=== PATIENT | female | born 1970 | race Caucasian/White ===

== ENCOUNTER → 2016-08-14 | Outpatient (CLI) | payer BC ==
[2016-08-14 11:28] VITALS: BMI 44.4
== END | disposition home or self-care (01) ==
LOC: MNTWWP 11:02
PROVIDERS: ATTEND Internal Medicine
DX: E66.9 Obesity, unspecified (principal)
CPT/HCPCS: 97802

== ENCOUNTER 2020-02-01 15:33 | Observation (INO) | payer BC ==
--- NOTE | 2020-02-01 16:33 | XR ---
EXAMINATION TYPE: XR chest 2V DATE OF EXAM: 02/01/2020 COMPARISON: NONE HISTORY: Chest pain. TECHNIQUE: Frontal and lateral views of the chest are obtained. FINDINGS: There is no focal air space opacity, pleural effusion, or pneumothorax seen. The cardiac silhouette size is within normal limits. Multilevel spurring in the right lateral aspect mid to lower thoracic spine. IMPRESSION: No acute process.
[2020-02-01] MEDS ORDERED: ASPIRIN 81 MG PO STA (18:00)
[2020-02-01] MEDS ORDERED: NITROGLYCERIN SL TABS 0.4 MG TAB SUBLINGUAL STA (18:01)
[2020-02-01] MEDS ORDERED: SODIUM CHLORIDE 0.9% 500 ML 500 ML IV STA (18:01)
[2020-02-01 18:42] LABS: ALT 22 U/L (4-34); AST 26 U/L (14-36); African American GFR (CKD) >90 (>60 ml/min/1.73 sqM); Albumin 4.2 g/dL (3.5-5.0); Alkaline Phosphatase 89 U/L (38-126); Anion Gap 8 mmol/L; Blood Urea Nitrogen 13 mg/dL (7-17); Calcium 9.3 mg/dL (8.4-10.2); Carbon Dioxide 27 mmol/L (22-30); Chloride 106 mmol/L (98-107); Glucose 121 mg/dL (74-99); Non-African American GFR(CKD) >90 (>60 ml/min/1.73 sqM); Sodium 141 mmol/L (137-145); Total Bilirubin 0.3 mg/dL (0.2-1.3); Total Protein 7.2 g/dL (6.3-8.2)
[2020-02-01 18:44] LABS: Basophils # (A) 0.1 k/uL (0-0.2); Basophils % (A) 1 %; Eosinophils # (A) 0.2 k/uL (0-0.7); Eosinophils % (A) 2 %; HCT 40.8 % (34.0-46.0); HGB 13.1 gm/dL (11.4-16.0); Lymphocytes # (A) 3.4 k/uL (1.0-4.8); Lymphocytes % (A) 37 %; MCH 29.7 pg (25.0-35.0); MCHC 32.2 g/dL (31.0-37.0); MCV 92.2 fL (80.0-100.0); Mean Platelet Volume 6.4; Monocytes # (A) 0.3 k/uL (0-1.0); Monocytes % (A) 4 %; Neutrophils # (A) 5.2 k/uL (1.3-7.7); Neutrophils % (A) 57 %; Platelet Count 357 k/uL (150-450); RBC 4.42 m/uL (3.80-5.40); RDW 12.3 % (11.5-15.5); WBC 9.2 k/uL (3.8-10.6)
[2020-02-01 18:59] LABS: INR 0.9 (<1.2)
[2020-02-01 19:00] LABS: D-Dimer 0.29 mg/L FEU (<0.60); Partial Thromboplastin Time 22.3 sec (22.0-30.0); Prothrombin Time 9.7 sec (9.0-12.0)
[2020-02-01] MEDS ORDERED: ONDANSETRON 4 MG/2 ML VIAL IVP STA (19:02)
[2020-02-01] MEDS ORDERED: MORPHINE SULFATE 4 MG/ML SYRINGE IV STA (19:02)
[2020-02-01] MEDS ORDERED: HEPARIN SODIUM,PORCINE 5,000 UNIT/ML 1 ML VIAL IV PRN (19:29)
[2020-02-01] MEDS ORDERED: HEPARIN SODIUM,PORCINE 5,000 UNIT/ML 1 ML VIAL IV ONE (19:29)
[2020-02-01] MEDS ORDERED: HEPARIN SOD,PORK IN 0.45% NACL 25,000 UNIT in 0.45% NACL 1 250ML.BAG IV SCH (19:30)
[2020-02-01] MEDS ORDERED: NITROGLYCERIN SL TABS 0.4 MG TAB SUBLINGUAL PRN (20:20)
--- NOTE | 2020-02-01 20:59 | CT ---
EXAMINATION TYPE: CT brain wo con DATE OF EXAM: 02/01/2020 COMPARISON: 10/12/2009 HISTORY: Headache CT DLP: mGycm Automated exposure control for dose reduction was used. Ventricles and sulci appear normal. There is no mass effect nor midline shift. There is no sign of in tracranial hemorrhage. Calvarium is intact. There is no evidence of cerebral edema. Skull base is int act. IMPRESSION: Negative unenhanced head CT scan. No change.
[2020-02-01] MEDS ORDERED: MONTELUKAST 10 MG TAB PO SCH (21:00)
[2020-02-01] MEDS ORDERED: ALBUTEROL NEBULIZED 2.5 MG/3 ML INHALATION PRN (21:01)
--- NOTE | 2020-02-01 21:52 | ED ---
General Adult HPI - General Chief complaint: Chest Pain Stated complaint: sent by pcpc, chest pain, Time Seen by Provider: 02/01/20 17:53 Source: patient, RN notes reviewed, old records reviewed Mode of arrival: ambulatory Limitations: no limitations - History of Present Illness Initial comments: 49-year-old female patient proceeded for evaluation of substernal chest pain which has been ongoing for the amount off and on over the last 2 days it has been persistent. Also has been having some dizziness. States that she feels like she has some very mild shortness of breath. Also some waxing and waning headaches, denies any flank symptoms. Denies any radiation or any other acute complaints. Systemic: Pt denies fatigue, fever/chills, rash. Pt denies weakness, night sweats, weight loss. Neuro: Pt denies visual disturbances, syncope or pre-syncope. HEENT: Pt denies ocular discharge or irritation, otalgia, rhinorrhea, pharyngitis or notable lymphadenopathy. Cardiopulmonary: Pt denies heart palpitations, dyspnea on exertion. Abdominal/GI: Pt denies abdominal pain, n/v/d. : Pt denies dysuria, burning w/ urination, frequency/urgency. Denies new onset urinary or bowel incontinence. MSK: Pt denies myalgia, loss of strength or function in extremities. Neuro: Pt denies new onset weakness, paresthesias. - Related Data Home Medications Medication Instructions Recorded Confirmed Albuterol Sulfate [Proair Hfa] 2 puff INHALATION RT-QID PRN 02/01/20 02/01/20 Ibuprofen [Motrin Ib] 600 mg PO Q6H PRN 02/01/20 02/01/20 Montelukast [Singulair] 10 mg PO HS 02/01/20 02/01/20 Triamcinolone 0.1% Cream [Kenalog 1 applic TOPICAL BID PRN 02/01/20 02/01/20 0.1% Cream] Zolpidem [Ambien] 10 mg PO HS 02/01/20 02/01/20 buPROPion HCL [Wellbutrin XL] 300 mg PO DAILY 02/01/20 02/01/20 Allergies Allergy/AdvReac Type Severity Reaction Status Date / Time ciprofloxacin Allergy Rash/Hives Verified 02/01/20 19:08 clarithromycin [From Biaxin] Allergy Anaphylaxis Verified 02/01/20 19:08 nitrofurantoin Allergy Anaphylaxis Verified 02/01/20 19:08 [From Macrobid] Penicillins Allergy Anaphylaxis Verified 02/01/20 19:08 sulfamethoxazole Allergy Rash/Hives Verified 02/01/20 19:08 [From Bactrim] trimethoprim [From Bactrim] Allergy Rash/Hives Verified 02/01/20 19:08 Review of Systems ROS Statement: Those systems with pertinent positive or pertinent negative responses have been documented in the HPI. ROS Other: All systems not noted in ROS Statement are negative. Past Medical History Past Medical History: Asthma History of Any Multi-Drug Resistant Organisms: None Reported Past Surgical History: Orthopedic Surgery Smoking Status: Never smoker Past Alcohol Use History: Occasional Past Drug Use History: None Reported General Exam - General Exam Comments Initial Comments: Constitutional: NAD, AOX3, Pt has pleasant affect. HEENT: NC/AT, trachea midline, neck supple, no lymphadenopathy. Posterior pharynx non erythematous, without exudates. External ears appear normal, without discharge. Mucous membranes moist. Eyes PERRLA, EOM intact. There is no scleral icterus. No pallor noted. Cardiopulmonary: RRR, no murmurs, rubs or gallops, no JVD noted. Lungs CTAB in anterior and posterior harvey. No peripheral edema. Abdominal exam: Abdomen soft and non-distended. Abdomen non-tender to palpation in all 4 quadrants. Bowel sounds active in LLQ. No hepatosplenomegaly. No ecchymosis Neuro: CN II-XII intact. No nuchal rigidity. No raccon eyes, no stallings sign, no hemotympanum. No cervical spinal tenderness. MSK: No posterior calf tenderness bilaterally, homans sign negative bilaterally. Posterior tibialis and radial pulse +2 bilaterally. Sensation intact in upper and lower extremities. Full active ROM in upper and lower extremities, 5/5 stregnth. Limitations: no limitations Course Vital Signs 02/01/20 02/01/20 16:07 22:40 Temperature 98.4 F Pulse Rate 88 88 Respiratory 18 16 Rate Blood Pressure 177/84 105/61 O2 Sat by Pulse 97 95 Oximetry Medical Decision Making - Medical Decision Making 49-year-old male patient to ED for chest pain. Also reports some waxing and waning shortness of breath and some waxing and waning headaches. Physical exam didn't display acute pathology. Laboratory investigations unremarkable troponin negative. D dimer within acceptable limits. Chest respiratory no acute process. CT brain was performed did not display any acute process. Patient pain resolved entirely after several nitro patient was heparinized and admitted for serial troponins and further evaluation. Case discussed with Dr. Solis and Dr. Booker. - Lab Data Result diagrams: 02/01/20 18:23 02/01/20 18:23 Lab Results 02/01/20 02/01/20 02/01/20 Range/Units 18:23 18:23 18:23 WBC 9.2 (3.8-10.6) k/uL RBC 4.42 (3.80-5.40) m/uL Hgb 13.1 (11.4-16.0) gm/dL Hct 40.8 (34.0-46.0) % MCV 92.2 (80.0-100.0) fL MCH 29.7 (25.0-35.0) pg MCHC 32.2 (31.0-37.0) g/dL RDW 12.3 (11.5-15.5) % Plt Count 357 (150-450) k/uL Neutrophils % 57 % Lymphocytes % 37 % Monocytes % 4 % Eosinophils % 2 % Basophils % 1 % Neutrophils # 5.2 (1.3-7.7) k/uL Lymphocytes # 3.4 (1.0-4.8) k/uL Monocytes # 0.3 (0-1.0) k/uL Eosinophils # 0.2 (0-0.7) k/uL Basophils # 0.1 (0-0.2) k/uL PT 9.7 (9.0-12.0) sec INR 0.9 (<1.2) APTT 22.3 (22.0-30.0) sec D-Dimer 0.29 (<0.60) mg/L FEU Sodium 141 (137-145) mmol/L Potassium 4.0 (3.5-5.1) mmol/L Chloride 106 (98-107) mmol/L Carbon Dioxide 27 (22-30) mmol/L Anion Gap 8 mmol/L BUN 13 (7-17) mg/dL Creatinine 0.75 (0.52-1.04) mg/dL Est GFR (CKD-EPI)AfAm >90 (>60 ml/min/1.73 sqM) Est GFR (CKD-EPI)NonAf >90 (>60 ml/min/1.73 sqM) Glucose 121 H (74-99) mg/dL Calcium 9.3 (8.4-10.2) mg/dL Magnesium 2.0 (1.6-2.3) mg/dL Total Bilirubin 0.3 (0.2-1.3) mg/dL AST 26 (14-36) U/L ALT 22 (4-34) U/L Alkaline Phosphatase 89 (38-126) U/L Troponin I (0.000-0.034) ng/mL NT-Pro-B Natriuret Pep pg/mL Total Protein 7.2 (6.3-8.2) g/dL Albumin 4.2 (3.5-5.0) g/dL 02/01/20 02/01/20 Range/Units 18:23 18:23 WBC (3.8-10.6) k/uL RBC (3.80-5.40) m/uL Hgb (11.4-16.0) gm/dL Hct (34.0-46.0) % MCV (80.0-100.0) fL MCH (25.0-35.0) pg MCHC (31.0-37.0) g/dL RDW (11.5-15.5) % Plt Count (150-450) k/uL Neutrophils % % Lymphocytes % % Monocytes % % Eosinophils % % Basophils % % Neutrophils # (1.3-7.7) k/uL Lymphocytes # (1.0-4.8) k/uL Monocytes # (0-1.0) k/uL Eosinophils # (0-0.7) k/uL Basophils # (0-0.2) k/uL PT (9.0-12.0) sec INR (<1.2) APTT (22.0-30.0) sec D-Dimer (<0.60) mg/L FEU Sodium (137-145) mmol/L Potassium (3.5-5.1) mmol/L Chloride (98-107) mmol/L Carbon Dioxide (22-30) mmol/L Anion Gap mmol/L BUN (7-17) mg/dL Creatinine (0.52-1.04) mg/dL Est GFR (CKD-EPI)AfAm (>60 ml/min/1.73 sqM) Est GFR (CKD-EPI)NonAf (>60 ml/min/1.73 sqM) Glucose (74-99) mg/dL Calcium (8.4-10.2) mg/dL Magnesium (1.6-2.3) mg/dL Total Bilirubin (0.2-1.3) mg/dL AST (14-36) U/L ALT (4-34) U/L Alkaline Phosphatase (38-126) U/L Troponin I <0.012 (0.000-0.034) ng/mL NT-Pro-B Natriuret Pep 45 pg/mL Total Protein (6.3-8.2) g/dL Albumin (3.5-5.0) g/dL - EKG Data -: EKG Interpreted by Me (and Dr. Booker ) EKG Comments: 1) Ventricular rate 92, painful 160, QRS 74, QT/QTC 364/450. Normal sinus rhythm with sinus arrhythmia. Cannot out anterior infarct age undetermined. No concern for acute ischemia at this time. 2) Ventricular rate 90, OK interval 162, QRS 78, QT/QTc 350/428, Normal sinus rhythm Possible anterior infarct age undetermined. No concern for acute ischemia this time. Disposition Clinical Impression: Chest pain Disposition: ADMITTED IP TO THIS HOSP Condition: Serious Is patient prescribed a controlled substance at d/c from ED?: No
[2020-02-01] MEDS ORDERED: IBUPROFEN 600 MG TAB PO PRN (22:00)
[2020-02-01] MEDS: PANTOPRAZOLE 40 MG/10 ML VIAL IVP SCH (22:55)
[2020-02-01] MEDS ORDERED: ZOLPIDEM 5 MG TAB PO SCH (23:00)
--- NOTE | 2020-02-02 00:04 | HP ---
HISTORY AND PHYSICAL DATE OF SERVICE: 02/01/2020 CHIEF COMPLAINT: Chest pain. HISTORY OF PRESENT ILLNESS: This is a 49-year-old woman with a past medical history of multiple medical problems including history of asthma, history of DJD being followed Dr. Mejia in the outpatient setting came to the hospital complaining of chest pain. The patient was having on and off chest pain for the past several days. The pain was felt on the left side of the chest which was radiated to the neck and jaw and because of the severity of pain, the patient came to [facility] and was admitted for further evaluation and treatment. The initial troponins are negative at this time. EKG did not show acute changes. IV heparin has been initiated. There is no history of fever, rigors. No headache, loss of consciousness, seizures at this time. No history of any contact with COVID-19 infection. PAST MEDICAL HISTORY: History of asthma, DJD. MEDICATIONS: Home medications are Wellbutrin XL, Ambien, Kenalog, Singulair, Motrin, ProAir. ALLERGIES: CIPRO. BIAXIN, MACROBID, PENICILLIN, BACTRIM. FAMILY HISTORY: No history of heart disease or strokes in the family. SOCIAL HISTORY: No history of smoking. No alcohol intake. REVIEW OF SYSTEMS: ENT: No diminished vision. No diminished hearing. CARDIOVASCULAR as mentioned. RESPIRATORY as mentioned earlier. GI no nausea. : No dysuria. NERVOUS SYSTEM: No numbness or weakness. ALLERGY/IMMUNOLOGY: No asthma or hayfever. MUSCULOSKELETAL as mentioned earlier. HEMATOLOGY/ONCOLOGY: No history of anemia. ENDOCRINE: No history of diabetes or hypothyroidism. CONSTITUTIONAL: As mentioned earlier. DERMATOLOGY: Negative. RHEUMATOLOGY: Negative. PSYCHIATRIC: As mentioned earlier. PHYSICAL EXAMINATION: Alert and oriented times three. Pulse 88, blood pressure 177/84, respiration 18. Temperature 98.4, pulse ox 97 percent on room air. HEENT: Conjunctivae normal. NECK: No JVD. CARDIOVASCULAR: S1, S2 muffled. RESPIRATORY: Breath sounds diminished in the bases. No rhonchi. No crackles. ABDOMEN: Soft, nontender. No mass palpable. LEGS no edema. No swelling. NERVOUS SYSTEM: Higher functions as mentioned earlier. Moves all 4 limbs. No focal motor-sensory deficits. LYMPHATICS: No lymph nodes palpable in the neck, axillae or groin. SKIN: No ulcer, no rash and no bleeding. JOINTS: No active deforming arthropathy. LABS: At this time: CBC within normal limits and glucose 121. Troponin less than 0.012. ASSESSMENT: 1. Chest pain possible unstable angina. 2. Hypertension. 3. Increased random blood sugar. 4. History of asthma. 5. History of degenerative joint disease. 6. Obesity with body mass index 42. 7. FULL CODE. RECOMMENDATIONS AND DISCUSSION: This 49-year-old woman who presented with multiple complex medical issues, we will monitor the patient closely. Continue the current medication, management and symptomatic treatment. Resume the home medications. Otherwise, cardiology consultation. I would recommend possibly stress test in the morning to rule out myocardial infarction. Unstable angina protocol with IV heparin. Prognosis guarded because of multiple complex medical issues. Further recommendations to follow. A copy of dictation being forwarded to Dr. Mejia who is the primary physician. ANASTASIA / ISABEL: [id number] /
[2020-02-02] MEDS: ALPRAZolam 0.25 MG TAB PO PRN ×2 (00:30→15:18)
[2020-02-02 03:32] LABS: Basophils # (A) 0.1 k/uL (0-0.2); Basophils % (A) 1 %; Eosinophils # (A) 0.1 k/uL (0-0.7); Eosinophils % (A) 1 %; HCT 39.7 % (34.0-46.0); HGB 12.6 gm/dL (11.4-16.0); Lymphocytes # (A) 3.4 k/uL (1.0-4.8); Lymphocytes % (A) 38 %; MCH 29.1 pg (25.0-35.0); MCHC 31.6 g/dL (31.0-37.0); MCV 92.1 fL (80.0-100.0); Mean Platelet Volume 6.4; Monocytes # (A) 0.4 k/uL (0-1.0); Monocytes % (A) 4 %; Neutrophils # (A) 4.9 k/uL (1.3-7.7); Neutrophils % (A) 54 %; Platelet Count 338 k/uL (150-450); RBC 4.32 m/uL (3.80-5.40); RDW 12.3 % (11.5-15.5)
[2020-02-02 03:39] LABS: African American GFR (CKD) >90 (>60 ml/min/1.73 sqM); Anion Gap 6 mmol/L; Blood Urea Nitrogen 14 mg/dL (7-17); Calcium 8.9 mg/dL (8.4-10.2); Carbon Dioxide 27 mmol/L (22-30); Chloride 109 mmol/L (98-107); Cholesterol 208 mg/dL (<200); Glucose 111 mg/dL (74-99); HDL Cholesterol 55 mg/dL (40-60); LDL Cholesterol,Calculated 139 mg/dL (0-99); Non-African American GFR(CKD) >90 (>60 ml/min/1.73 sqM); Potassium 4.1 mmol/L (3.5-5.1); Sodium 142 mmol/L (137-145); Triglycerides 68 mg/dL (<150)
[2020-02-02 04:45] VITALS: RESP 16
[2020-02-02] MEDS ORDERED: DOBUTamine DRIP for NUC MED 500 MG in DEXTROSE/WATER 1 250ML.BAG IV ONE (08:30)
[2020-02-02] MEDS: PANTOPRAZOLE 40 MG/10 ML VIAL IVP SCH (08:30)
[2020-02-02] MEDS ORDERED: buPROPion XL 300 MG TAB.ER.24H PO SCH (09:00)
[2020-02-02] MEDS ORDERED: ASPIRIN 325 MG TAB PO SCH (09:00)
[2020-02-02] MEDS ORDERED: ASPIRIN 81 MG PO SCH (09:00)
[2020-02-02] MEDS ORDERED: TRIAMCINOLONE 0.1% CREAM 80 GM TUBE TOPICAL PRN (09:00)
--- NOTE | 2020-02-02 11:03 | P.CRDCN ---
History of Present Illness History of present illness: HISTORY OF PRESENTING ILLNESS This is a pleasant 49-year-old female past medical history significant for asthma and obesity. She does not follow in the office with a surveillance camera technician for any reason. We have been asked to see in consultation for chest pain. She states yesterday while sitting on the couch working on her laptop she felt a squeezing/burning sensation in the left precordial region associated with feeling light headed, nauseated and an achy feeling in her shoulders. She was also mildly short of breath. The discomfort lasted for approximately 30 minutes and ultimately subsided on its own. She denies palpitations or vomiting. The discomfort did not radiate down her arm or into her jaw. She states she has felt symptoms like this in the past however they're typically associated with food. In the last 2 weeks she's had chest pain twice 15 minutes after eating. However on this occasion she had not just eaten. And she has never experienced associated dizziness. DIAGNOSTICS EKG reveals sinus mechanism with poor R-wave progression. Chest xray negative for an acute cardiopulmonary process. CT of the brain negative for any acute process. Laboratory reviewed, CBC unremarkable, d-dimer 0.29, sodium 142, potassium 4.1, creatinine 0.76, magnesium 2.0, cardiac enzymes negative 3, NT proBNP 45, LDL 139 and HDL 55. She takes no daily cardiac medications. REVIEW OF SYSTEMS At the time of my exam: CONSTITUTIONAL: Denies fever or chills. CARDIOVASCULAR: Denies chest pain, shortness of breath, orthopnea, PND or palpitations. RESPIRATORY: Denies cough. GASTROINTESTINAL: Denies abdominal pain, diarrhea, constipation, nausea or vomiting. MUSCULOSKELETAL: Denies myalgias. NEUROLOGIC: Denies numbness, tingling or weakness. ENDOCRINE: Denies fatigue, weight change, polydipsia or polyurina. GENITOURINARY: Denies burning, hematuria or urgency with micturation. HEMATOLOGIC: Denies history of anemia or bleeding. PHYSICAL EXAMINATION Blood pressure 128/83 heart rate 86 afebrile and maintaining oxygen saturation on room air. CONSTITUTIONAL: No apparent distress. HEENT: Head is normocephalic. Pupils are equal, round. Sclerae anicteric. Mucous membranes of the mouth are moist. No JVD. No carotid bruit. CHEST EXAMINATION: Lungs are clear to auscultation. No chest wall tenderness is noted on palpation or with deep breathing. HEART EXAMINATION: Regular rate and rhythm. S1, S2 heard. No murmurs, gallops or rub. ABDOMEN: Soft, nontender. Positive bowel sounds. EXTREMITIES: 2+ peripheral pulses, no lower extremity edema and no calf tenderness. NEUROLOGIC EXAMINATION: Patient is awake, alert and oriented x3. ASSESSMENT Chest pain, atypical for angina. An acute coronary event has been ruled out History of asthma Morbid obesity, BMI 42 PLAN An acute coronary event has been ruled out. Obtain 2-D echocardiogram and Doppler study to assess cardiac structure and function Perform dobutamine stress echocardiogram to assess for stress-induced cardiac ischemia. Recommend lifestyle modifications for lowering of LDL cholesterol less than 100. Ongoing medical management and evaluation of possible underlying GI etiology a stress test is normal. Thank you kindly for this consultation. Nurse Practitioner note has been reviewed, I agree with a documented findings and plan of care. Patient was seen and examined. Past Medical History Past Medical History: Asthma History of Any Multi-Drug Resistant Organisms: None Reported Past Surgical History: Orthopedic Surgery Past Anesthesia/Blood Transfusion Reactions: No Reported Reaction Smoking Status: Never smoker Past Alcohol Use History: Occasional Past Drug Use History: None Reported - Past Family History Mother Family Medical History: Hyperlipidemia Medications and Allergies Home Medications Medication Instructions Recorded Confirmed Type Albuterol Sulfate [Proair Hfa] 2 puff INHALATION RT-QID PRN 02/01/20 02/01/20 History Ibuprofen [Motrin Ib] 600 mg PO Q6H PRN 02/01/20 02/01/20 History Montelukast [Singulair] 10 mg PO HS 02/01/20 02/01/20 History Triamcinolone 0.1% Cream [Kenalog 1 applic TOPICAL BID PRN 02/01/20 02/01/20 History 0.1% Cream] Zolpidem [Ambien] 10 mg PO HS 02/01/20 02/01/20 History buPROPion HCL [Wellbutrin XL] 300 mg PO DAILY 02/01/20 02/01/20 History Allergies Allergy/AdvReac Type Severity Reaction Status Date / Time ciprofloxacin Allergy Rash/Hives Verified 02/01/20 19:08 clarithromycin [From Biaxin] Allergy Anaphylaxis Verified 02/01/20 19:08 nitrofurantoin Allergy Anaphylaxis Verified 09/28/20 19:08 [From Macrobid] Penicillins Allergy Anaphylaxis Verified 02/01/20 19:08 sulfamethoxazole Allergy Rash/Hives Verified 02/01/20 19:08 [From Bactrim] trimethoprim [From Bactrim] Allergy Rash/Hives Verified 02/01/20 19:08 Physical Exam Vitals: Vital Signs Temp Pulse Pulse Resp BP BP Pulse Ox 02/02/20 07:56 97.8 F 86 16 128/83 95 02/02/20 03:00 97.9 F 98 16 118/72 94 L 02/02/20 00:50 98.0 F 80 18 121/79 99 02/01/20 22:40 88 16 105/61 95 02/01/20 16:07 98.4 F 88 18 177/84 97 Intake and Output 02/01/20 02/02/20 02/02/20 22:59 06:59 14:59 Intake Total 75.781 Balance 75.781 Intake: Intake, IV Titration 75.781 Amount Heparin Sod,Pork in 0.45% 75.781 NaCl 25,000 unit In 0.45 % NaCl 1 250ml.bag @ 8.4 UNITS/KG/HR 9.906 mls/hr IV .Q24H [facility] Rx#: [id number] Other: Voiding Method Toilet # Voids 2 Weight 117.934 kg Results 02/02/20 03:03 02/02/20 03:03 Cardiac Enzymes 02/01/20 02/01/20 02/01/20 Range/Units 18:23 18:23 22:00 AST 26 (14-36) U/L Troponin I <0.012 <0.012 (0.000-0.034) ng/mL 02/01/20 Range/Units 23:48 AST (14-36) U/L Troponin I <0.012 (0.000-0.034) ng/mL Coagulation 02/01/20 02/02/20 Range/Units 18:23 03:03 PT 9.7 (9.0-12.0) sec APTT 22.3 38.0 H (22.0-30.0) sec Lipids 02/02/20 Range/Units 03:03 Triglycerides 68 (<150) mg/dL Cholesterol 208 H (<200) mg/dL HDL Cholesterol 55 (40-60) mg/dL CBC 02/01/20 02/02/20 Range/Units 18:23 03:03 WBC 9.2 9.0 (3.8-10.6) k/uL RBC 4.42 4.32 (3.80-5.40) m/uL Hgb 13.1 12.6 (11.4-16.0) gm/dL Hct 40.8 39.7 (34.0-46.0) % Plt Count 357 338 (150-450) k/uL Comprehensive Metabolic Panel 02/01/20 02/02/20 Range/Units 18:23 03:03 Sodium 141 142 (137-145) mmol/L Potassium 4.0 4.1 (3.5-5.1) mmol/L Chloride 106 109 H (98-107) mmol/L Carbon Dioxide 27 27 (22-30) mmol/L BUN 13 14 (7-17) mg/dL Creatinine 0.75 0.76 (0.52-1.04) mg/dL Glucose 121 H 111 H (74-99) mg/dL Calcium 9.3 8.9 (8.4-10.2) mg/dL AST 26 (14-36) U/L ALT 22 (4-34) U/L Alkaline Phosphatase 89 (38-126) U/L Total Protein 7.2 (6.3-8.2) g/dL Albumin 4.2 (3.5-5.0) g/dL Current Medications Generic Name Dose Route Start Last Admin Trade Name Freq PRN Reason Stop Dose Admin Albuterol Sulfate 2 mg 02/01/20 21:01 Albuterol Nebulized 2.5 Mg/3 Ml INHALATION RT-QID PRN Shortness Of Breath Alprazolam 0.25 mg 02/01/20 21:02 02/02/20 00:30 Alprazolam 0.25 Mg Tab PO 0.25 mg TID PRN Administration Anxiety Aspirin 325 mg 02/02/20 09:00 Aspirin 325 Mg Tab PO DAILY ARABELLA Bupropion HCl 300 mg 02/02/20 09:00 Bupropion Xl 300 Mg Tab.Er.24h PO DAILY ARABELLA Heparin Sodium (Porcine) 0 unit 02/01/20 19:29 Heparin Sodium,Porcine 5,000 Unit/Ml 1 Ml Vial IV PER PROTOCOL PRN Low PTT Protocol Heparin Sodium/Sodium Chloride 250 mls @ 9.906 mls/hr 02/01/20 19:30 02/02/20 04:58 25,000 unit/ Sodium Chloride IV 10.4 units/kg/hr .Q24H ARABELLA 12.265 mls/hr Titration Protocol 8.4 UNITS/KG/HR Ibuprofen 600 mg 02/01/20 22:00 Ibuprofen 600 Mg Tab PO Q6H PRN Pain Montelukast Sodium 10 mg 02/01/20 21:00 02/01/20 22:59 Montelukast 10 Mg Tab PO 10 mg HS ARABELLA Administration Nitroglycerin 0.4 mg 02/01/20 20:20 Nitroglycerin Sl Tabs 0.4 Mg Tab SUBLINGUAL Q5M PRN Chest Pain Pantoprazole Sodium 40 mg 02/01/20 21:30 02/01/20 22:55 Pantoprazole 40 Mg/10 Ml Vial IVP 40 mg DAILY ARABELLA Administration Triamcinolone Acetonide 1 applic 02/02/20 09:00 Triamcinolone 0.1% Cream 80 Gm Tube TOPICAL BID PRN VAGINA ITCH Zolpidem Tartrate 10 mg 02/01/20 23:00 02/01/20 23:17 Zolpidem 5 Mg Tab PO 10 mg HS ARABELLA Administration Intake and Output 02/01/20 02/02/20 02/02/20 22:59 06:59 14:59 Intake Total 75.781 Balance 75.781 Intake: Intake, IV Titration 75.781 Amount Heparin Sod,Pork in 0.45% 75.781 NaCl 25,000 unit In 0.45 % NaCl 1 250ml.bag @ 8.4 UNITS/KG/HR 9.906 mls/hr IV .Q24H [facility] Rx#: [id number] Other: Voiding Method Toilet # Voids 2 Weight 117.934 kg 02/02/20 03:03 02/02/20 03:03
[2020-02-02 15:16] VITALS: BP 130/72; PULSE 104; TEMP 98.9
[2020-02-03] MEDS ORDERED: PANTOPRAZOLE 40 MG TABLET PO SCH (07:30)
[2020-02-03] MEDS ORDERED: ATORVASTATIN 10 MG TAB PO SCH (09:00)
--- NOTE | 2020-02-03 09:31 | DS ---
DISCHARGE SUMMARY DATE OF SERVICE: 02/02/2020 FINAL DIAGNOSES: 1. Chest pain, possibly GERD. Negative stress test. 2. Hypertension. 3. Increased random blood sugar. 4. History of asthma. 5. History of degenerative joint disease. 6. Obesity with body mass index 42. 7. FULL CODE. DISCHARGE DISPOSITION: The patient will be discharged in a stable condition with guarded prognosis. HISTORY OF PRESENT ILLNESS: This is a 49-year-old woman with a past medical history of multiple medical problems, admitted with chest pain, myocardial infarction ruled out. Patient had a stress test per Cardiology, report is negative and the patient improved significantly. The lab- vega, the cholesterol was 208 and LDL was 139. Recommend a small dose of Lipitor on outpatient followup. On exam, vitals are stable cardiovascular is normal. Abdomen is soft, nontender. Legs, no edema. Nervous system, no focal deficits. DISCHARGE ADVICE: 1. Diet is cardiac diet. 2. Activity limited until followup. 3. Follow up with Dr. Mejia in 2-3 days. 4. Follow up with Dr. Rizzo as advised. DISCHARGE MEDICATIONS ARE: 1. Ambien 10 mg q.h.s. 2. Kenalog cream. 3. Ibuprofen. 4. Albuterol p.r.n. 5. Singulair 10 mg q.h.s. 6. Wellbutrin XL 300 mg p.o. daily. 7. Lipitor 10 mg p.o. daily. MMGERRIL / ISABEL: [id number] /
--- NOTE | 2020-02-03 09:46 | ECHOS ---
STRESS ECHOCARDIOGRAM DOBUTAMINE STRESS ECHOCARDIOGRAM: LUMASON: Vial INDICATIONS: Chest pain. MEDICATIONS: BASELINE HEART RATE: 95 BASELINE BLOOD PRESSURE: 129/79 MAXIMUM HEART RATE: 157 MAXIMUM BLOOD PRESSURE: 154/68 85% MPHR: 145 100% MPHR: 171 METS: N/A MAXIMUM STAGE REACHED: III TOTAL EXERCISE TIME: 7:29 CLINICAL INFORMATION: Baseline EKG shows sinus rhythm, normal axis, normal intervals. Patient was given intravenous dobutamine over a period of 7-1/2 minutes as per protocol, achieving 85% of predicted maximal heart rate without chest pain or diagnostic ST-segment depression. Baseline echo shows normal left ventricular size, wall motion and systolic function. Post dobutamine infusion there is normal hyperdynamic response of all segments of myocardium noted. CONCLUSIONS: 1. Negative stress test by EKG criteria. 2. Negative dobutamine echocardiogram. MMODL / IJN: [id number] /
--- NOTE | 2020-02-03 17:12 | ECHOF ---
Referral Reason:chest pain MEASUREMENTS -------- HEIGHT: 167.6 cm WEIGHT: 117.9 kg BP: 118/72 RVIDd: 3.2 cm (< 3.3) IVSd: 1.0 cm (0.6 - 1.1) LVIDd: 4.6 cm (3.9 - 5.3) LVPWd: 1.0 cm (0.6 - 1.1) IVSs: 1.4 cm LVIDs: 2.5 cm LVPWs: 1.6 cm LA Diam: 3.5 cm (2.7 - 3.8) LAESV Index (A-L): 19.24 ml/m Ao Diam: 3.0 cm (2.0 - 3.7) AV Cusp: 2.1 cm (1.5 - 2.6) MV EXCURSION: 16.594 mm (> 18.000) MV EF SLOPE: 38 mm/s (70 - 150) EPSS: 0.3 cm MV E Juan: 0.73 m/s MV DecT: 265 ms MV A Juan: 0.82 m/s MV E/A Ratio: 0.88 RAP: 5.00 mmHg RVSP: 19.78 mmHg FINDINGS -------- Sinus rhythm. This was a technically good study. The left ventricular size is normal. Left ventricular wall thickness is normal. Overall left vent ricular systolic function is normal with, an EF between 60 - 65 %. The right ventricle is normal in size. Normal LA size by volume 22+/-6 ml/m2. The right atrium is normal in size. Interatrial and interventricular septum intact. The aortic valve is trileaflet and appears structurally normal. The mitral valve is normal. Mild tricuspid regurgitation present. Right ventricular systolic pressure is normal at < 35 mmHg. Trace/mild (physiologic) pulmonic regurgitation. The aortic root size is normal. IVC Not well visulized. There is no pericardial effusion. CONCLUSIONS -------- 1. The left ventricular size is normal. 2. Left ventricular wall thickness is normal. 3. Overall left ventricular systolic function is normal with, an EF between 60 - 65 %. 4. Mild tricuspid regurgitation present. 5. Trace/mild (physiologic) pulmonic regurgitation. 6. There is no pericardial effusion. [employer]: Chanda Garcia [facility]
== END 2020-02-02 17:45 | disposition home or self-care (01) ==
LOC: EC 15:33 → 3NCARDOBS 21:55
PROVIDERS: ADMIT Hospitalist; ATTEND Hospitalist
DX: R07.89 Other chest pain (principal); R42 Dizziness and giddiness; R06.02 Shortness of breath; R51 Headache; R94.31 Abnormal electrocardiogram [ECG] [EKG]; R11.0 Nausea; R29.898 Other symptoms and signs involving the musculoskeletal system; I10 Essential (primary) hypertension; R73.09 Other abnormal glucose; J45.909 Unspecified asthma, uncomplicated; M19.90 Unspecified osteoarthritis, unspecified site; E66.01 Morbid (severe) obesity due to excess calories; Z79.899 Other long term (current) drug therapy; Z79.1 Long term (current) use of non-steroidal anti-inflammatories (NSAID); Z88.1 Allergy status to other antibiotic agents; Z88.0 Allergy status to penicillin; Z88.2 Allergy status to sulfonamides; Z98.890 Other specified postprocedural states; Z68.41 Body mass index [BMI] 40.0-44.9, adult
CPT/HCPCS: 93005 ×2; 96366; 96376 ×2; 96361; 96365; 96375; 99285; 36415; 93306; 93351; 85379; 83880; 80061; 80053; 80048; 83735; 84484; 85025 ×2; 85610; 85730 ×2; 71046; 70450; G0378 ×2; J1250; J1644 ×2; C9113 ×2; Q9950

== ENCOUNTER → 2022-06-05 | Outpatient (CLI) | payer BC ==
--- NOTE | 2022-06-05 14:04 | XR ---
EXAMINATION TYPE: XR knee limited RT DATE OF EXAM: 06/05/2022 1:54 PM INDICATION: Patient age:Female; 51 years old; Reason for study: M25.561; [facility]. COMPARISON: None. TECHNIQUE: The Right knee(s) was examined in frontal and lateral projections. FINDINGS: No dislocation. No acute fracture. Questionable loose body within the medial tibiofemoral joint space on the frontal view. Tricompartmental joint space narrowing with marginal osteophytosis and sclerosis. No joint effusion or soft tissue edema. IMPRESSION: 1. No acute fracture or dislocation. 2. Questionable loose body within the medial tibiofemoral joint space. Consider follow-up radiograph versus CT of the knee for further evaluation as clinically indicated. 3. Mild tricompartmental osteoarthritic changes.
== END | disposition home or self-care (01) ==
LOC: RADXRMAIN 13:41
PROVIDERS: ATTEND Internal Medicine
DX: M17.11 Unilateral primary osteoarthritis, right knee (principal)

== ENCOUNTER → 2023-05-10 | Outpatient (CLI) | payer BC ==
--- NOTE | 2023-05-10 12:10 | XR ---
EXAMINATION TYPE: XR KUB DATE OF EXAM: 05/10/2023 12:03 PM CLINICAL INDICATION:Female, 52 years old with history of R31.29; [facility] COMPARISON: None. TECHNIQUE: One radiographic view of the abdomen was obtained. FINDINGS: Moderate amount of stool in the right colon. The bowel gas pattern is nonspecific without d ilated loops of small or large bowel. There is no evidence for organomegaly or pneumoperitoneum. The osseous structures are intact. No abnormal calcifications are present. Fecal material and gas are d emonstrated throughout the colon and rectum. Degeneration changes of the hips with osteophyte format ion and joint space narrowing. Mild multilevel degeneration changes of the spine. IMPRESSION: Nonspecific bowel gas pattern without radiographic evidence for acute process.
== END | disposition home or self-care (01) ==
LOC: RADXRMAIN 11:47
PROVIDERS: ATTEND Internal Medicine
DX: R31.29 Other microscopic hematuria (principal); R14.0 Abdominal distension (gaseous)
CPT/HCPCS: 74018

== ENCOUNTER → 2023-05-14 | Outpatient (CLI) | payer BC ==
--- NOTE | 2023-05-22 11:16 | CT ---
EXAMINATION TYPE: CT abdomen pelvis wo con CT DLP: 1097 mGycm, Automated exposure control for dose reduction was used. DATE OF EXAM: 05/14/2023 12:54 PM COMPARISON: None. CLINICAL INDICATION:Female, 52 years old with history of R31.9 HEMATURIA; flank pain, hematuria, UTI TECHNIQUE: Axial CT of the abdomen and pelvis. Sagittal and coronal reformats were created on a [employer] workstation. Contrast used: mL of , (none if empty) Oral contrast used: without Oral Contrast (none if empty) FINDINGS: Exam is tailored for detection of urinary tract calculi. Exam is otherwise limited without contrast. LOWER CHEST: Mild bibasilar scarring and/or subsegmental atelectasis. Heart size upper normal. Trace pericardial fluid. Prominent pericardial fat. Small hiatal hernia. ABDOMEN LIVER: Unremarkable GALLBLADDER AND BILE DUCTS: Unremarkable gallbladder. No biliary ductal dilatation. PANCREAS: Fatty infiltrated without acute finding. SPLEEN: Unremarkable. Small adjacent splenule. ADRENAL GLANDS: Unremarkable. KIDNEYS AND URETERS: A 3.7 mm hyperdense focus within the mid to lower right kidney could be cortical calcification. No definite calculi in the collecting system or ureter, and no hydronephrosis. Left k idney demonstrates no calculi. Dromedary hump is suggested. There is mild perinephric stranding. No e vidence of ureteral calculi or hydronephrosis. PELVIS BLADDER: Mostly empty but grossly unremarkable and contains no calculi. REPRODUCTIVE: Uterus and adnexal regions appear grossly unremarkable, though not well assessed by CT. ABDOMEN & PELVIS STOMACH AND BOWEL: Heterogeneous contents of the stomach with a hyperdense focus likely medication ta blet or other ingested dense material. The duodenal sweep is unremarkable. Nondistended small bowel l oops without evidence of obstruction. Fatty infiltration of the ileocecal valve. Appendix is seen in the right lower quadrant image 94 and appears within normal limits. A couple foci of radiodense mater ial in the cecum and ascending colon, likely medication/ingested material. Mild/moderate stool throug hout the colon. Multiple sigmoid diverticuli without evidence of diverticulitis. PERITONEUM/RETROPERITONEUM: No evidence of pneumoperitoneum or free fluid. VASCULATURE: Mild atherosclerotic calcifications are present throughout the abdominal aorta and its b ranches. No evidence of aortic aneurysm. LYMPH NODES: No gross evidence for lymphadenopathy. SOFT TISSUE/ABDOMINAL WALL: Tiny fat-containing umbilical and inguinal hernias. MUSCULOSKELETAL: No acute osseous abnormalities. Moderate disc degeneration changes are present throu ghout the thoracolumbar spine, greatest at L5-S1. IMPRESSION: 1. No evidence of ureteral calculi or hydronephrosis. 2. A 3.7 mm right renal calcification, likely cortical. 3. Mild left perinephric stranding, nonspecific. Likely considerations include recently passed calcu jewell and infection. Correlate clinically. 4. Colonic diverticula are present, without signs of inflammation to suggest diverticulitis.
== END | disposition home or self-care (01) ==
LOC: RADCTMAIN 12:25
PROVIDERS: ATTEND Internal Medicine
DX: K57.30 Diverticulosis of large intestine without perforation or abscess without bleeding (principal); N28.89 Other specified disorders of kidney and ureter; R31.9 Hematuria, unspecified; N39.0 Urinary tract infection, site not specified
CPT/HCPCS: 74176

== ENCOUNTER → 2024-03-10 | Outpatient (CLI) | payer BC ==
--- NOTE | 2024-03-16 12:35 | MM ---
Reason for Exam: Screening (asymptomatic). Last mammogram was performed 1 year(s) and 8 month(s) ago. Patient History: Menarche at age 11. First Full-Term at age 32. Late child-bearing (after 30). Postmenopausal. Maternal grandmother had breast cancer at or over age 50. Risk Values: Brigette 5 year model risk: 1.7%. NCI Lifetime model risk: 12.6%. Prior Study Comparison: 07/28/2018 Bilateral MG screening mammo w CAD - 2, [facility]. 04/27/2021 Bilateral MG 3D screening mammo w/cad, [facility]. 07/10/2022 Bilateral MG 3D screening mammo w/cad, [facility]. Tissue Density: There are scattered areas of fibroglandular density. Findings: Analyzed By CAD. Right breast: There is no suspicious group of microcalcifications or new suspicious mass. Benign-appearing calcifications right breast. Left breast: There is no suspicious group of microcalcifications or new suspicious mass. Benign-appearing calcifications left breast. Overall Assessment: Benign, BI-RAD 2 Management: Screening Mammogram of both breasts in [address] [facility] will attempt to contact patient to return for supplemental views and ultrasound if indicated. Patient should continue monthly self-breast exams. A clinical breast exam by your physician is recommended on an annual basis. This exam should not preclude additional follow-up of suspicious palpable abnormalities. Note on Brigette scores and lifetime risk: 1. A Brigette score greater than 3% is considered moderate risk. If this is the case, consider specialist referral to assess eligibility for a risk reducing agent. 2. If overall lifetime risk for the development of breast cancer is 20% or higher, the patient may qualify for future screening with alternating mammogram and breast MRI. [facility], , 03/16/2024 12:33 PM. Electronically signed and approved by: Neville Bray DO
== END | disposition home or self-care (01) ==
LOC: RADMAMWWP 11:49
PROVIDERS: ATTEND Internal Medicine
DX: Z12.31 Encounter for screening mammogram for malignant neoplasm of breast (principal); Z78.0 Asymptomatic menopausal state; Z80.3 Family history of malignant neoplasm of breast; R92.323 Mammographic fibroglandular density, bilateral breasts
CPT/HCPCS: 77063; 77067

== ENCOUNTER → 2024-04-28 | Outpatient (CLI) | payer BC ==
--- NOTE | 2024-04-28 10:26 | US ---
EXAMINATION TYPE: US thyroid st tissue head/neck DATE OF EXAM: 04/28/2024 COMPARISON: NONE CLINICAL INDICATION: Female, 53 years old with history of E04.1 NONTOXIC SINGLE THYROID NODULE; never had thyroid US before, thinks she has possible thyroid nodule TECHNIQUE: Grayscale and color Doppler imaging of the thyroid gland. FINDINGS: GLAND SIZE: Right Lobe: 4.6 x 1.1 x 1.2 cm Overall Parenchyma: homogeneous Left Lobe: 4.6 x 1.1 x 1.2 cm Overall Parenchyma: homogeneous Isthmus Thickness: 0.4 cm NODULES RIGHT: # of nodules measured on right: 0 LEFT: # of nodules measured on left: 0 ISTHMUS: # of nodules measured in the isthmus: 0 Bilateral neck scanned, no evidence of lymphadenopathy. IMPRESSION: Unremarkable thyroid without discrete nodule. [facility], , 04/28/2024 10:24 AM
--- NOTE | 2024-04-28 10:37 | XR ---
EXAMINATION TYPE: XR KUB DATE OF EXAM: 04/28/2024 COMPARISON: CT abdomen pelvis 05/14/2023, KUB radiograph 05/10/2023 HISTORY: R31.9, hematuria TECHNIQUE: Single supine KUB image of the abdomen is obtained FINDINGS: Small bowel demonstrates no evidence for dilatation or air fluid levels. Gas and fecal material is seen in non-distended colon. No convincing evidence for pneumoperitoneum. No unusual calcifications. The lung bases are clear. The osseous structures are intact. IMPRESSION: Overall nonobstructive bowel gas pattern. [facility], , 04/28/2024 10:35 AM
== END | disposition home or self-care (01) ==
LOC: RADUSWWP 09:59
PROVIDERS: ATTEND Internal Medicine
DX: E04.1 Nontoxic single thyroid nodule (principal); R31.9 Hematuria, unspecified
CPT/HCPCS: 74018; 76536

== ENCOUNTER → 2024-11-18 | Outpatient (CLI) | payer BC ==
[2024-11-18 15:24] LABS: Basophils # (A) 0.04 X 10*3/uL (0.00-0.10); Basophils % (A) 0.7 %; Eosinophils # (A) 0.05 X 10*3/uL (0.04-0.35); Eosinophils % (A) 0.9 %; HCT 39.7 % (37.2-46.3); HGB 12.9 g/dL (12.0-15.0); Immature Grans, Automated 0.40 %; Lymphocytes # (A) 2.20 X 10*3/uL (0.90-5.00); Lymphocytes % (A) 38.9 %; MCH 31.2 pg (27.0-32.0); MCHC 32.5 g/dL (32.0-37.0); MCV 95.9 FL (80.0-97.0); Monocytes # (A) 0.34 X 10*3/uL (0.20-1.00); Monocytes % (A) 6.0 %; NRBC Per 100 WBC 0 X 10*3/uL (0.00-0.01); Neutrophils # (A) 3.01 X 10*3/uL (1.80-7.70); Neutrophils % (A) 53.1 %; Platelet Count 357 X 10*3/uL (140-440); RBC 4.14 X 10*6/uL (4.10-5.20); RDW 11.9 % (11.5-14.5); WBC 5.66 X 10*3/uL (4.50-10.00)
[2024-11-18 15:39] LABS: Anion Gap 10.40 mmol/L (4.00-12.00); BUN/Creat Ratio 18.62 Ratio (12.00-20.00); Blood Urea Nitrogen 14.9 mg/dL (9.0-27.0); Carbon Dioxide 27.6 mmol/L (21.6-31.8); Chloride 102 mmol/L (96-109); Glucose 95 mg/dL (70-110); Potassium 4.2 mmol/L (3.5-5.5); Sodium 140 mmol/L (135-145)
[2024-11-18 15:40] LABS: ALT 17 U/L (8-44); AST 21 U/L (13-35); Albumin 4.7 g/dL (3.8-4.9); Albumin/Globulin Ratio 2.04 Ratio (1.60-3.17); Alkaline Phosphatase 101 U/L (41-126); Calcium 10.0 mg/dL (8.7-10.3); Globulin 2.3 g/dL (1.6-3.3); Total Protein 7.0 g/dL (6.2-8.2)
== END | disposition home or self-care (01) ==
LOC: LABWHC1 10:23
DX: R07.9 Chest pain, unspecified (principal)
CPT/HCPCS: 36415; 80053; 84484; 85025; 85379